=== PATIENT | female | born 1980 | race Two or more races ===

== ENCOUNTER → 2023-12-13 | Outpatient (CLI) | payer OTHER, BC, SELFPAY ==
[2023-12-13 17:43] LABS: Follicle Stimulating Hormone 4.44 mIU/mL (See Note)
[2023-12-21 06:21] LABS: Estradiol, Ultrasensitive* 122 pg/mL; Testosterone,Total* 183 ng/dL (2-45)
== END | disposition home or self-care (01) ==
LOC: COPL 16:29
PROVIDERS: Referring Provider Internal Medicine; Visit Provider Internal Medicine
DX: N95.1 Menopausal and female climacteric states (principal); R68.82 Decreased libido; R23.2 Flushing
CPT/HCPCS: 36415; 82670; 83001; 84403

== ENCOUNTER → 2024-04-04 | Outpatient (CLI) | payer OTHER, BC, SELFPAY ==
[2024-04-04 17:40] LABS: Sed Rate (ESR) 6 mm/hr (0-20)
[2024-04-04 17:44] LABS: Follicle Stimulating Hormone 4.52 mIU/mL (See Note)
[2024-04-11 07:03] LABS: Testosterone,Total* 11 ng/dL (2-45)
== END | disposition home or self-care (01) ==
LOC: COPL 16:29
PROVIDERS: Referring Provider Internal Medicine; Visit Provider Internal Medicine
DX: N95.1 Menopausal and female climacteric states (principal); E34.9 Endocrine disorder, unspecified; E07.89 Other specified disorders of thyroid; R68.82 Decreased libido; R23.2 Flushing; N95.2 Postmenopausal atrophic vaginitis; R53.83 Other fatigue; R73.9 Hyperglycemia, unspecified; Z13.228 Encounter for screening for other metabolic disorders
CPT/HCPCS: 36415; 83001; 84403; 85652

== ENCOUNTER → 2024-04-17 | Outpatient (CLI) | payer OTHER, BC, SELFPAY ==
[2024-04-25 06:56] LABS: Estradiol, Ultrasensitive* 42 pg/mL
== END | disposition home or self-care (01) ==
LOC: COPL 16:33
PROVIDERS: Referring Provider Internal Medicine; Visit Provider Internal Medicine
DX: N95.1 Menopausal and female climacteric states (principal); R68.82 Decreased libido; R23.2 Flushing; N95.2 Postmenopausal atrophic vaginitis
CPT/HCPCS: 36415; 82670

== ENCOUNTER → 2024-05-29 | Outpatient (CLI) | payer OTHER, BC, SELFPAY ==
[2024-06-13 06:58] LABS: Estradiol, Ultrasensitive* 114 pg/mL; Testosterone,Total* 200 ng/dL (2-45)
== END | disposition home or self-care (01) ==
PROVIDERS: PCP Internal Medicine; Referring Provider Internal Medicine; Visit Provider Internal Medicine
DX: N95.1 Menopausal and female climacteric states (principal); R68.82 Decreased libido; R23.2 Flushing; N95.2 Postmenopausal atrophic vaginitis
CPT/HCPCS: 36415; 82670; 83001; 84403

== ENCOUNTER 2024-07-19 11:33 | Outpatient (AMB) | payer OTHER, BC, SELFPAY ==
--- NOTE | 2024-07-19 11:58 | GYNCLNT_ITS ---
Vital Signs 07/19/24 12:04 Height 1.7 m Height Method Stated Weight 83.688 kg Weight Measurement Method Standing Scale BMI 28.9 BP 159/100 H Blood Pressure Source Automatic Cuff Blood Pressure Location Right Upper Arm Position Sitting Respiration 17 Pulse 71 Pulse Source Monitor Temp 98.4 F Temp Source Temporal Artery Scan Pulse Oximetry (%) 96 Oxygen Delivery Method Room Air Allergies/Home Meds Allergies & Medications Allergies No Known Allergies Allergy (Verified 07/19/24 11:59) Intake Visit Data Collection New Patient or Established: New Patient (never been to [facility]) Reason for Visit:: ANNUAL EXAM Seen by Clinical Staff ONLY (RN/MA): No Document Control Manager Required: No Do You Feel Safe at Home: Yes Authorities Contacted: N/A PCP or OBGYN visit in last 3 months: No Hx Now: No Are you currently on any form of Control: Yes (BTL) Last menstrual period: 07/16/24 Pain Present Currently: No Pain Scale Used: Guy-Donahue/Numerical Pain scale:: 0 Smoking Status Smoking Status: Never smoker 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 2016 Tubal ligation 2017 Rush teeth removal 1996 ACL replacement 2007 Other Relevant History: Patient is receiving some type of hormone pellets she states estrogen and testosterone through Dr. Flor. She also states she is starting progesterone she does not know the dosage. Questionnaires Covid-19 Vaccine Questionnaire Has patient been vacinated for Covid-19 Have you been vacinated for Covid-19: No PHQ-9 PHQ-2 Over the last 2 weeks, how often have you been bothered by any of the following problems? 1. Little interest or pleasure in doing things: not at all 2. Feeling down, depressed, or hopeless: not at all Total score: 0 PHQ-9 3. Trouble falling or staying asleep, or sleeping too much: Not at all 4. Feeling tired or having little energy: Not at all 5. Poor appetite or overeating: Not at all 6. Feeling bad about yourself - or that you are a failure or have let yourself or your family down: Not at all 7. Trouble concentrating on things, such as reading the newspaper or watching television: Not at all 8. Moving or speaking so slowly that other people could have noticed? - Or the opposite - being so fidgety or restless that you have been moving around a lot more than usual: not at all 9. Thoughts that you would be better off or of hurting yourself in some way: Not at all Total score: 0 If you checked off any problems, how difficult have these problems made it for you to do your work, take care of things at home, or get along with other people?: not difficult at all Source: Developed by Drs. Lorenzo Whaley, Fern Beckwith, Javid Miranda and colleagues, with an educational italo from [employer]. 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 9-y/o twins, 11 y/o son Tobacco History Smoking Status: Never smoker Alcohol History Alcohol Intake: Current Alcohol Intake Frequency: holidays/special occasions only Domestic Abuse History Do You Feel Safe at Home: Yes History of Present Illness HPI Narrative Patient is a 44-year-old -1-0-3 who used to see me in [place]. She has a history of a vaginal delivery in 2013. Her son is 11 years old. She delivered at almost 37 weeks. Her second she went into labor and delivered twins by emergency at 24 weeks in 2015. I was her doctor. And was in that per patient. She had a boy and a girl with that and miraculously they are both doing well. They are 9 years old. I performed a tubal ligation on her in 2017. She did not bring any of her records from [place]. She presents today for an annual exam. Of note her blood pressu re is elevated today and this is new for her. The plan will be to check this in about a week if it is still elevated she needs to follow-up with her primary primary care. She is on collagen and creatinine supplements she is also taking estrogen and testosterone pellets and starting progesterone. I do not have any of her dosages. This is through Dr. Flor in [place]. The patient is having regular menstrual cycles, her last menstrual period 07/17/2024. Her cycles last 7 days and occur about every 28 days. Last Pap was in 2022. Review of Systems Review of Systems Narrative Review of Systems: No hot flashes night sweats on her pellets. She was having some decreased energy. I do not have any lab work on the patient Exam General Limitations: no limitations General Appearance: alert, in no apparent distress, comfortable, cooperative, healthy appearing and well groomed Neck Neck exam: Present normal inspection, full ROM and trachea midline Chest Chest inspection: Present normal inspection and symmetric chest wall rise Exp Chest Breast: bilateral: other (Normal breast exam bilaterally) Resp Respiratory exam: Present normal lung sounds bilaterally Card Cardiovascular exam: Present regular rate, normal rhythm and normal heart sounds Abdominal Abdominal exam: Present soft, normal bowel sounds and scar (Well-healed Pfannenstiel scar present) External exam: Present normal external exam Speculum exam: Present normal speculum exam Bimanual exam: Present normal bimanual exam (Uterus is anteverted not enlarged no adnexal masses or tenderness) Psych Psychiatric exam: Present normal affect and normal mood Skin Skin exam: Present warm, dry, intact and normal color Office Procedures OB Clinic LOC & Office Proc's Nursing/Assessment Patient Status: Initial/New Patient OB Clinic Nursing Assessment: Medication Reconciliation, Update PMH in EMR and Vital Signs OB Clinic Coordination of Care: Complex Care and Chronic Disease 1-5, C onsent,records obtained, informed consent, Education Simp Pt/Fam, Lab and Imaging orders and Staff clarify orders Miscellaneous Interventions: Breast Exam and Pelvic/Pap Smear Set up New Patient Charge New Patient Point Assignment: [id number] New Patient Point Charge: DRAFTER [employer]ERCIAL Level 4 ([id number]) In Clinic Procedures Pap Smear: Yes Assessment & Plan Diagnosis / Problem List (1) Women's annual routine gynecological examination: Status: Acute Assessment and Plan: Pap with high-risk HPV was performed breast exam done encouraged mammogram was ordered (2) Hypertension: Status: Acute Qualifiers: Hypertension type: primary hypertension Qualified Code(s): I10 - Essential (primary) hypertension Assessment and Plan: Have patient follow-up in 1 week if blood pressure still elevated refer her to the resident clinic for follow-up. Patient might need to go off her hormones if she has new onset hypertension. 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
[2024-07-19 12:04] VITALS: BP 159/100; PULSE 71; RESP 17; TEMP 36.9; O2SAT 96; BMI 28.9
== END 2024-07-19 12:23 | disposition home or self-care (01) ==
LOC: HODSOBC 11:33
PROVIDERS: PCP Internal Medicine; Referring Provider Internal Medicine; Supervising Provider Obstetrics & Gynecology; Visit Provider Obstetrics & Gynecology
DX: Z01.419 Encounter for gynecological examination (general) (routine) without abnormal findings (principal); Z11.51 Encounter for screening for human papillomavirus (HPV); I10 Essential (primary) hypertension; Z98.51 Tubal ligation status
CPT/HCPCS: 99204; Q0091; G0463

== ENCOUNTER → 2024-09-03 | Outpatient (CLI) | payer OTHER, BC, SELFPAY ==
[2024-09-03 09:59] LABS: Follicle Stimulating Hormone 14.08 mIU/mL (See Note)
[2024-09-11 06:27] LABS: Estradiol, Ultrasensitive* 64 pg/mL; Testosterone,Total* 19 ng/dL (2-45)
== END | disposition home or self-care (01) ==
LOC: COPL 08:08
PROVIDERS: Referring Provider Internal Medicine; Visit Provider Internal Medicine
DX: N95.1 Menopausal and female climacteric states (principal); N95.2 Postmenopausal atrophic vaginitis; R23.2 Flushing; R68.82 Decreased libido
CPT/HCPCS: 36415; 82670; 83001; 84403

== ENCOUNTER → 2024-09-16 | Outpatient (CLI) | payer OTHER, BC, SELFPAY ==
--- NOTE | 2024-09-16 15:00 | XR_ITS ---
Examination: Screening digital mammography, bilateral Computer aided detection 3-D breast Tomosynthesis, bilateral Date and time of exam: September 16, 2024 1441 hours Indication: Screening Technique: Nonmagnified MLO, CC views of the breasts to been obtained, reconstructed from 3-D Tomosynthesis images. R2 computer aided detection program utilized for evaluation of suspicious masses and/or abnormal calcifications. 3-D Tomosynthesis images obtained. Findings: The breasts are heterogeneously dense, which may obscure small masses 12 mm focal asymmetry upper outer right breast Impression: BI-RADS Category 0: Incomplete: Need additional imaging evaluation Recommend follow-up spot tomographic views of 12 mm focal asymmetry upper outer right breast, right breast sonography to complete the workup
== END | disposition home or self-care (01) ==
LOC: CDIM 14:32
PROVIDERS: Referring Provider Obstetrics & Gynecology; Visit Provider Obstetrics & Gynecology
DX: Z12.31 Encounter for screening mammogram for malignant neoplasm of breast (principal); N64.89 Other specified disorders of breast
CPT/HCPCS: 77063; 77067

== ENCOUNTER → 2024-11-20 | Outpatient (CLI) | payer OTHER, BC, SELFPAY ==
[2024-11-20 17:49] LABS: Follicle Stimulating Hormone 5.25 mIU/mL (See Note)
[2024-12-02 06:48] LABS: Estradiol, Ultrasensitive* 46 pg/mL; Testosterone,Total* 130 ng/dL (2-45)
== END | disposition home or self-care (01) ==
PROVIDERS: Referring Provider Internal Medicine; Visit Provider Internal Medicine
DX: N95.1 Menopausal and female climacteric states (principal)
CPT/HCPCS: 36415; 82670; 83001; 84403